=== PATIENT | male | born 1975 | race African-American/Black ===

== ENCOUNTER 2021-09-01 08:10 | Emergency (ER) | payer MEDICAID ==
[~2021-09-01] VITALS: Ht 182.9 cm; Wt 120.0 kg
[2021-09-01] MEDS ORDERED: HYDROCODONE/ACETAMINOPHEN 5/325MG TABLET PO ONE (08:45)
[2021-09-01] MEDS ORDERED: IBUPROFEN 400MG TABLET PO ONE (08:45)
[2021-09-01] MEDS ORDERED: IBUP-2028 MT (09:51)
[2021-09-01 10:21] VITALS: BP 147/91
== END 2021-09-01 10:24 | disposition home or self-care (01) ==
LOC: ER 08:24
DX: S80.11XA Contusion of right lower leg, initial encounter (principal); E11.9 Type 2 diabetes mellitus without complications; I10 Essential (primary) hypertension; W01.0XXA Fall on same level from slipping, tripping and stumbling without subsequent striking against object, initial encounter; Y93.89 Activity, other specified; Y92.811 Bus as the place of occurrence of the external cause; Y99.8 Other external cause status
CPT/HCPCS: 73590; 99283; L1830